=== PATIENT | female | born 1965 | race Caucasian/White ===

== ENCOUNTER 2023-07-28 11:08 | Outpatient (REF) | payer BC, SELFPAY ==
[2023-07-28 19:19] LABS: ALT 29 U/L (14-59); AST 16 U/L (15-37); Albumin 4.3 g/dL (3.4-5.0); Alkaline Phosphatase 73 U/L (46-116); Anion Gap 8.3 mmol/L (3-11); BUN 12 mg/dL (7-18); Bilirubin, Total 0.3 mg/dL (0.2-1.0); CO2 29.7 mmol/L (21.0-32.0); CREATININE 0.7 mg/dL (0.55-1.02); Calcium 9.9 mg/dL (8.5-10.1); Calculated LDL 161 mg/dL (<100); Chloride 105 mmol/L (98-107); Cholesterol 247 mg/dL (<200); Estimated GFR 100.19 (mL/min/1.73m2); Glucose 89 mg/dL (74-106); HDL Cholesterol 53 mg/dL (40-60); Potassium 4.8 mmol/L (3.5-5.1); Sodium 143 mmol/L (136-145); Total Protein 7.9 g/dL (6.4-8.2); Triglyceride 168 mg/dL (<150)
== END 2023-07-28 11:09 | disposition home or self-care (01) ==
LOC: NCHCN 11:08
PROVIDERS: PCP Nurse Practitioner Family; Visit Provider Nurse Practitioner Family
DX: I10 Essential (primary) hypertension (principal); E78.5 Hyperlipidemia, unspecified
CPT/HCPCS: 80053; 80061

== ENCOUNTER 2024-01-27 13:00 | Outpatient (REF) | payer BC, SELFPAY ==
[2024-01-27 20:21] LABS: Calculated LDL 148 mg/dL (<100); Cholesterol 227 mg/dL (<200); HDL Cholesterol 55 mg/dL (40-60); Triglyceride 124 mg/dL (<150)
== END 2024-01-27 13:01 | disposition home or self-care (01) ==
LOC: NCHCN 13:00
PROVIDERS: PCP Nurse Practitioner Family; Visit Provider Nurse Practitioner Family
DX: E78.5 Hyperlipidemia, unspecified (principal)
CPT/HCPCS: 80061